=== PATIENT | male | born 1960 | race Caucasian/White ===

== ENCOUNTER 2017-02-10 09:52 | Emergency (ER) | payer OTHER ==
[~2017-02-10] VITALS: Ht 185.4 cm; Wt 83.9 kg
[2017-02-10 09:53] VITALS: BP 162/95
[2017-02-10] MEDS ORDERED: NORVASC10 MG PO (10:06)
[2017-02-10] MEDS ORDERED: PERCOCET PO (10:07)
[2017-02-10] MEDS ORDERED: PREDNISONE 20 M20 MG PO (11:10)
[2017-02-10] MEDS ORDERED: IBUPROFEN 600600 M1 PO (11:10)
[2017-02-10] MEDS ORDERED: TIZANIDINE HCL4 MG PO (11:10)
[2017-06-14] MEDS ORDERED: HYDROCODONE-AP1 EAC6 PO (10:45)
[2017-06-30] MEDS ORDERED: NAPROSYN500 MG PO (17:59)
[2017-06-30] MEDS ORDERED: NORFLEX100 MG PO (17:59)
== END 2017-02-10 11:23 | disposition home or self-care (01) ==
LOC: ER 09:52
DX: S39.012A Strain of muscle, fascia and tendon of lower back, initial encounter (principal); W00.9XXA Unspecified fall due to ice and snow, initial encounter; Y93.89 Activity, other specified; Y92.89 Other specified places as the place of occurrence of the external cause; Y99.8 Other external cause status

== ENCOUNTER 2017-06-16 23:02 | Inpatient (IN) | payer OTHER ==
[~2017-06-16] VITALS: Ht 182.9 cm; Wt 81.6 kg
--- NOTE | ~2017-06-16 | H ---
[facility] [place] [address] HISTORY AND PHYSICAL Name: YUDELKA AGGARWAL Room #: 407-P [facility] IN M.R.#: [id number] Admission: 06/17/17 Attend Phys: Saleem Bone MD Discharge: Date of : 58 Report #: [id number] THIS REPORT FOR: //name// CC: Adam Bone DATE OF SERVICE: 06/17/2017 CHIEF COMPLAINT: Intractable left herniorrhaphy pain. HISTORY OF PRESENT ILLNESS: This is the first [facility] admission for this 57-year-old white male who underwent an elective uncomplicated left inguinal herniorrhaphy on 06/14/2017 with Prolene hernia system mesh by Dr. Velarde. He was discharged that afternoon. He was prescribed hydrocodone 5/325 according to the record for postoperative pain. However, he chronically takes oxycodone 5/325 two tablets 4 times a day for his back pain. His postoperative pain was not relieved and persisted. It became so severe that he presented to the Emergency Room. A detail thorough evaluation revealed no complications of the surgery itself, other than the severe pain. For this reason, he is admitted to the hospital for pain control. He has a history of chronic pain syndrome from failed back surgery. He takes oxycodone 5/325 two tablets 4 times a day according to the chart. 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 Failed back surgery and prior right hernia surgery. SOCIAL HISTORY: He does not smoke. He does drink alcohol. He denies using drugs of abuse. FAMILY HISTORY: Noncontributory. ALLERGIES: He has no known drug allergies. REVIEW OF SYSTEMS: Significant for insomnia since his surgery, his pain has been too great for him to be able to sleep more than an hour at a time. He usually has constipation, but since the surgery it has been unresponsive to his usual laxatives. OBJECTIVE: GENERAL: Exam showed a 57-year-old male who is in only minimal distress at the time of my examination due to increase in his pain medication. HEENT: His oropharynx is dry. HEENT exam is otherwise unremarkable. LUNGS: Clear. CARDIOVASCULAR: His heart tones are normal and the rhythm is regular. ABDOMEN: Soft and nontender except close to the left inguinal hernia site. A [address] [address] HISTORY AND PHYSICAL Name: YUDELKA AGGARWAL Room #: [facility] IN ..#: [id number] Admission: 06/17/17 Attend Phys: Saleem Bone MD Discharge: Date of : 58 Report #: [id number] large ice bag is present on the hernia site. EXTREMITIES: There is no clubbing, cyanosis or edema. MEDICATIONS: Hydrocodone 5/325 postoperative pain medication. Chronic pain medication is oxycodone 5/325 eight tablets per day. Amlodipine 10 mg at bedtime for blood pressure. LABORATORY DATA: His potassium is mildly low at 3.3. His white blood cell count is normal at 9.2 thousand with a normal differential. Urinalysis has not been obtained. IMAGING: CT scan of the abdomen and pelvis showed right basilar atelectasis, mild fatty infiltration of the liver. There are surgical changes of a recent left inguinal hernia repair with gas along the subcutaneous fat of the left groin and in the inguinal canal. No masses or fluid collections were identified. There is mesh identified from a remote right-sided inguinal hernia repair. There is no free intraperitoneal fluid. Mild ileus was present with a large amount of retained fecal material. Evidence of prior R hernia surgery. ASSESSMENT: 1. Uncontrolled left inguinal herniorrhaphy surgical pain. 2. Recent uncomplicated left inguinal herniorrhaphy with placement of a mesh system. 3. Constipation. 4. Insomnia. 5. Hypertension. 6. Chronic pain syndrome. 7. Failed back syndrome. 8. Right basilar atelectasis 9. Fatty liver 10. Hypokalemia PLAN: The patient has been seen in surgical consultation by Dr. Srinivasan Cruz and laxatives have been recommended. He is now having stools. Hydromorphone 1 mg every 4 hours is effective at relieving his postoperative pain at this time. He can obtain an oral formulation of this medication if it continues to be effective for him. Medications to help him sleep on a p.r.n. basis. By: [id number] Saleem Bone MD /nt
--- NOTE | ~2017-06-16 | EKG ---
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1960 Requested By: Saleem Bone Order Number: [id number] MD: Shreyas Murillo Measurements Intervals [place] Rate: 60 P: 24 [place]: 151 QRS: -12 QRSD: 93 T: 42 QT: 436 QTc: 436 Interpretive Statements Sinus rhythm Low voltage, extremity leads Nonspecific ST segment abnormality Compared to ECG 06/14/2017 09:09:11 No significant changes Electronically Signed On 06-19-2017 8:05:49 CDT by Shreyas Murillo [email or web address] <ELECTRONICALLY SIGNED> By: Shreyas Murillo MD, [facility] 06/19/17 0805 1309 1309 Shreyas Murillo MD, FAC /EPI
--- NOTE | ~2017-06-16 | D ---
[facility] [place] [address] DISCHARGE SUMMARY Name: YUDELKA AGGARWAL Room #: 407-P [facility] IN M.R.#: [id number] Admission: 06/17/17 Attend Phys: Saleem Bone MD Discharge: 06/19/17 Date of : 58 Report #: [id number] THIS REPORT FOR: //name// CC: Duane Velarde MD DATE OF SERVICE: 06/19/2017 HOSPITAL COURSE: The patient is a 57-year-old male who was admitted with intractable left lower quadrant abdominal pain after left inguinal hernia repair several days previous to admission. CT scan of the abdomen and pelvis was performed, and this showed only postoperative changes and no acute other problems. Surgical consultation was requested with Dr. Velarde. In his absence, Dr. Duane Cruz saw the patient. The patient was monitored closely and no surgical problems manifested themselves during his time in the hospital. Subsequent to that, on the day prior to discharge, the patient developed a sudden and unexplained onset of left neck pain, radiating into his left upper extremity. Dr. Bone obtained cervical spine x-rays that were benign, and I saw the patient the following day, and he reported that he still had significant discomfort in his left arm extending from the shoulder all the way down to his hand. I examined the patient and found no evidence of neurologic deficits with sensation or motor function. Deep tendon reflexes were actually decreased on the side he was having the pain as compared to the right side. Peripheral pulses were intact in both upper extremities distally and both hands were warm to touch. Grasp was strong and equal bilaterally. The left side of the neck was tender along the trapezius, extended down to the shoulder, but no other significant abnormalities were found. His range of motion in the neck is actually reasonably good and elicited minimal discomfort. I did examine the surgical wound where the left inguinal hernia had been and apart from mild perioperative site tenderness, it appeared benign and felt benign on exam. I then had a lengthy discussion with the patient about the use of narcotics. I feel that he has been using them inappropriately from the extent of his pain and actually was exceeded the maximum recommended as needed dosages prior to this hospitalization. At time of discharge, I am sending him home on a Percocet taper, he uses 5/325 strength tablets. We will start with 2 tablets every 8 hours, which is a decrease from every 6 hours. We will do this for 7 days, then 1 every 6 hours for 7 days, then 1 every 8 hours for 14 days. I plan to see him in 3 weeks and finished tapering him off the narcotics. He did get started in [address] [address] DISCHARGE SUMMARY Name: YUDELKA AGGARWAL Room #: 407-P DIS IN M.R.#: [id number] Admission: 06/17/17 Attend Phys: Saleem Bone MD Discharge: 06/19/17 Date of : 58 Report #: [id number] the hospital on gabapentin 300 mg daily. I recommend we continue that for management of his chronic pain. He is supposed to be taking amlodipine 10 mg daily for control of his hypertension, and this is resumed at discharge as well. I did recommend he continue with a fiber laxative to help treat his constipation. DISCHARGE DIAGNOSES: 1. Left inguinal pain, status post left inguinal herniorrhaphy. 2. Left cervical strain 3. Essential hypertension. 4. Constipation. 5. Chronic lumbar back pain after prior decompression laminectomy and fusion. I spoke with the patient about the inappropriate use of these habit forming addictive substances and made it very clear that we would not continue doing the same things as in the past. He explicitly stated to me that he wanted to get off these medicines as soon as possible, and I feel that a taper over the next month is reasonable. <ELECTRONICALLY SIGNED> By: Adam Freedman MD 06/19/17 2100 1444 1523 Adam Freedman MD /nt
[~2017-06-16 23:02] MED LIST: HYDROCODONE-AP1 EAC6 PO; IBUPROFEN 600600 M1 PO; NORVASC10 MG PO; PERCOCET PO; PREDNISONE 20 M20 MG PO; TIZANIDINE HCL4 MG PO
[2017-06-16 23:13] VITALS: BP 157/83
[2017-06-16 23:52] LABS: ABSOLUTE NEUTROPHILS 7.7 thou/uL (1.4-8.2); BASOPHILS 0.2 % (0.0-2.0); EOSINOPHILS 0.2 % (0.0-3.0); HEMATOCRIT 42.2 % (42.0-52.0); HEMOGLOBIN 14.5 gm/dL (14.0-18.0); LYMPHOCYTES 10.3 % (24.0-44.0); MCHC 34.4 g/dL (28.0-37.0); MCV 87.2 fL (80.0-100.0); MONOCYTES 5.7 % (1.0-8.0); PLATELET COUNT 161 thou/uL (150-400); POLYS 83.6 % (36.0-66.0); RBC 4.84 mil/uL (4.50-6.00); RDW 14.2 % (10.5-14.5); WBC 9.2 thou/uL (4.0-11.0)
[2017-06-17] LABS: CREATININE 1.1 mg/dL (0.7-1.3); POTASSIUM 3.3 mmol/L (3.5-5.1)
[2017-06-17 00:06] LABS: ALBUMIN 3.6 g/dL (3.4-5.0); DIRECT BILIRUBIN 0.2 mg/dL (<0.1-0.3); TOTAL BILIRUBIN 0.8 mg/dL (<0.1-1.0); TOTAL PROTEIN 6.8 g/dL (6.4-8.2)
[2017-06-17] MEDS ORDERED: PERCOCET 5-3251 EACH PO (01:29)
[2017-06-17 03:08] VITALS: BP 154/88
[2017-06-17 04:00] VITALS: BP 150/90
[2017-06-17 08:04] VITALS: BP 149/99
[2017-06-17 15:53] VITALS: BP 139/95
[2017-06-17 19:35] VITALS: BP 137/82
[2017-06-18 03:22] VITALS: BP 143/86
[2017-06-18 05:13] LABS: CALCIUM 9.4 mg/dL (8.5-10.1)
[2017-06-18 08:11] VITALS: BP 157/101
[2017-06-18 16:00] VITALS: BP 146/88
[2017-06-18 20:00] VITALS: BP 136/58
[2017-06-19 04:00] VITALS: BP 137/95
[2017-06-19 08:47] VITALS: BP 151/98
[2017-06-19] MEDS ORDERED: ENOXAPARIN40 MG/0.1 SUBQ (14:28)
[2017-06-19] MEDS ORDERED: DILAUDID 2 MG TA2 MG PO (14:29)
[2017-06-19] MEDS ORDERED: DILAUDID1 MG/1 ML IV PUSH (14:29)
[2017-06-19] MEDS ORDERED: AMBIEN 5 MG TABL5 M1 PO (14:30)
[2017-06-19] MEDS ORDERED: NEURONTIN 300300 M1 PO (14:30)
[2017-06-19] MEDS ORDERED: MILK OF MA2400 MG/10 PO (14:31)
[2017-06-19] MEDS ORDERED: METAMUCIL FIBE3.4 GM PO (14:31)
[2017-06-19] MEDS ORDERED: BISAC-EVAC10 MG RECTAL (14:31)
[2017-06-19 16:18] VITALS: BP 151/98
== END 2017-06-19 17:00 | disposition home or self-care (01) | DRG 948 ==
LOC: ER 23:02 → EROBS 06-17 02:34 → 4N 06-17 03:13 → ENTRNSPT 06-19 16:35 → 4N 06-19 17:00
PROVIDERS: Emergency Medicine; Internal Medicine
DX: G89.18 Other acute postprocedural pain (principal); J98.11 Atelectasis; I10 Essential (primary) hypertension; H91.91 Unspecified hearing loss, right ear; K59.00 Constipation, unspecified; M54.5 Low back pain; G47.00 Insomnia, unspecified; G89.4 Chronic pain syndrome; M25.512 Pain in left shoulder; M96.1 Postlaminectomy syndrome, not elsewhere classified; K76.0 Fatty (change of) liver, not elsewhere classified; E87.6 Hypokalemia; S16.1XXA Strain of muscle, fascia and tendon at neck level, initial encounter; X58.XXXA Exposure to other specified factors, initial encounter; Z79.899 Other long term (current) drug therapy; Y93.89 Activity, other specified; Y92.89 Other specified places as the place of occurrence of the external cause; Y99.8 Other external cause status; Z98.1 Arthrodesis status
CPT/HCPCS: 10091

== ENCOUNTER 2019-10-09 20:04 | Emergency (ER) | payer OTHER ==
[~2019-10-09] VITALS: Ht 182.9 cm; Wt 81.7 kg
[~2019-10-09 20:04] MED LIST changes: +AMBIEN 5 MG TABL5 M1 PO; +BISAC-EVAC10 MG RECTAL; +DILAUDID 2 MG TA2 MG PO; +DILAUDID1 MG/1 ML IV PUSH; +ENOXAPARIN40 MG/0.1 SUBQ; +METAMUCIL FIBE3.4 GM PO; +MILK OF MA2400 MG/10 PO; +NAPROSYN500 MG PO; +NEURONTIN 300300 M1 PO; +NORFLEX100 MG PO; +PERCOCET 5-3251 EACH PO
[2019-10-09] MEDS ORDERED: FLOMAX0.4 MG PO (20:19)
[2019-10-09] MEDS ORDERED: TOVIAZ4 MG PO (20:19)
[2019-10-09] MEDS ORDERED: PROSCAR 5MG TABL5 M1 PO (20:19)
[2019-10-09] MEDS ORDERED: MOBIC15 MG PO (23:05)
[2019-10-09 23:47] VITALS: BP 130/80
== END 2019-10-09 23:47 | disposition home or self-care (01) ==
LOC: ER 20:04
DX: S46.811A Strain of other muscles, fascia and tendons at shoulder and upper arm level, right arm, initial encounter (principal); I10 Essential (primary) hypertension; Z79.899 Other long term (current) drug therapy; Z98.890 Other specified postprocedural states; X50.1XXA Overexertion from prolonged static or awkward postures, initial encounter; Y93.89 Activity, other specified; Y92.89 Other specified places as the place of occurrence of the external cause; Y99.9 Unspecified external cause status

== ENCOUNTER 2020-08-21 11:59 | Emergency (ER) | payer OTHER ==
[~2020-08-21] VITALS: Ht 182.9 cm; Wt 78.5 kg
[~2020-08-21 11:59] MED LIST changes: +FLOMAX0.4 MG PO; +MOBIC15 MG PO; +PROSCAR 5MG TABL5 M1 PO; +TOVIAZ4 MG PO
[2020-08-21 13:45] LABS: ABSOLUTE NEUTROPHILS 3.8 thou/uL (1.4-8.2); BASOPHILS 0.1 % (0.0-2.0); EOSINOPHILS 2.3 % (0.0-3.0); HEMOGLOBIN 15.3 gm/dL (14.0-18.0); LYMPHOCYTES 15.5 % (24.0-44.0); MCH 29.8 pg (26.0-34.0); MCV 87.6 fL (80.0-100.0); MONOCYTES 8.1 % (1.0-8.0); PLATELET COUNT 182 thou/uL (150-400); RBC 5.13 mil/uL (4.50-6.00); RDW 13.8 % (10.5-14.5); WBC 5.2 thou/uL (4.0-11.0)
[2020-08-21 13:58] LABS: CALCIUM 9.3 mg/dL (8.5-10.1); CREATININE 1.1 mg/dL (0.7-1.3); POTASSIUM 4.4 mmol/L (3.5-5.1)
[2020-08-21 14:04] LABS: ALBUMIN 3.9 g/dL (3.4-5.0); DIRECT BILIRUBIN 0.1 mg/dL (<0.1-0.2); TOTAL BILIRUBIN 0.6 mg/dL (0.2-1.0)
[2020-08-21 16:41] LABS: URINE BILIRUBIN NEGATIVE (Negative); URINE BLOOD TRACE (Negative); URINE CLARITY CLEAR; URINE COLOR YELLOW; URINE GLUCOSE-RANDOM* NEGATIVE (Negative); URINE KETONES NEGATIVE (Negative); URINE LEUKOCYTES-REFLEX NEGATIVE (Negative); URINE NITRITE-REFLEX NEGATIVE (Negative); URINE PROTEIN (DIPSTICK) NEGATIVE (Negative); URINE SPECIFIC GRAVITY 1.015 (1.005-1.035); URINE UROBILINOGEN 0.2 E.U./dl (0.2-1.0)
[2020-08-21 17:52] VITALS: BP 143/83
--- NOTE | 2020-08-23 14:19 | EKG ---
[address] [address] [place] [address] ELECTROCARDIOGRAM REPORT Name: YUDELKA AGGARWAL [id number] Admission: 08/21/20 Attend Phys: Discharge: 08/21/20 Date of : 58 Report #: [id number] 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 : 1960 Requested By: Ann Marie Peña Order Number: [id number] MD: Shreyas Murillo Measurements Intervals [place] Rate: 68 P: 45 [place]: 140 QRS: 11 QRSD: 77 T: 55 QT: 404 QTc: 430 Interpretive Statements Sinus rhythm Low voltage, extremity leads Compared to ECG 06/18/2017 13:09:10 No significant change was found Electronically Signed On 08-23-2020 14:19:11 CDT by Shreyas Murillo [email or web address] <ELECTRONICALLY SIGNED> By: Shreyas uMrillo MD, [facility] 08/23/20 1419 1322 1322 Shreyas Murillo MD, FACC /EPI
== END 2020-08-21 17:52 | disposition home or self-care (01) ==
LOC: ER 11:59
PROVIDERS: Emergency Medicine; Nurse Practitioner Family
DX: R10.84 Generalized abdominal pain (principal); N40.0 Benign prostatic hyperplasia without lower urinary tract symptoms; I10 Essential (primary) hypertension; Z79.899 Other long term (current) drug therapy; Z20.822 Contact with and (suspected) exposure to COVID-19

== ENCOUNTER 2020-09-01 05:48 | Emergency (ER) | payer OTHER ==
[~2020-09-01] VITALS: Ht 182.9 cm; Wt 78.5 kg
[2020-09-01 06:20] LABS: ABSOLUTE NEUTROPHILS 3.5 thou/uL (1.4-8.2); BASOPHILS 0.8 % (0.0-2.0); EOSINOPHILS 1.8 % (0.0-3.0); HEMATOCRIT 44.7 % (42.0-52.0); HEMOGLOBIN 15.3 gm/dL (14.0-18.0); LYMPHOCYTES 28.1 % (24.0-44.0); MCH 29.6 pg (26.0-34.0); MCHC 34.2 g/dL (28.0-37.0); MCV 86.5 fL (80.0-100.0); MONOCYTES 7.1 % (1.0-8.0); PLATELET COUNT 205 thou/uL (150-400); POLYS 62.2 % (36.0-66.0); RBC 5.17 mil/uL (4.50-6.00); RDW 13.5 % (10.5-14.5); WBC 5.6 thou/uL (4.0-11.0)
[2020-09-01 06:23] LABS: CALCIUM 9.3 mg/dL (8.5-10.1); CREATININE 1.2 mg/dL (0.7-1.3); POTASSIUM 3.7 mmol/L (3.5-5.1)
[2020-09-01 06:29] LABS: ALBUMIN 3.9 g/dL (3.4-5.0); TOTAL BILIRUBIN 0.8 mg/dL (0.2-1.0); TOTAL PROTEIN 7.2 g/dL (6.4-8.2)
[2020-09-01] MEDS ORDERED: PEPCID20 MG PO (07:01)
[2020-09-01 07:13] VITALS: BP 111/72
== END 2020-09-01 07:20 | disposition home or self-care (01) ==
LOC: ER 05:48
PROVIDERS: Student in an Organized Health Care Education/Training Program
DX: R10.13 Epigastric pain (principal); I10 Essential (primary) hypertension